=== PATIENT | female | born 1975 | race Two or more races ===

== ENCOUNTER 2022-06-02 12:53 | Inpatient (IN) | payer OTHER ==
[~2022-06-02] VITALS: Ht 162.6 cm; Wt 57.6 kg
[~2022-06-02 12:53] MED LIST: CARAFATE1 G PO; PROTONIX40 MG PO; ZANTAC150 M3 PO; ZOFRAN8 MG PO
[2022-06-02] MEDS ORDERED: LEVO-T25 MCG (13:05)
== END 2022-06-03 15:11 | disposition home or self-care (01) | DRG 343 ==
LOC: ER 12:53 → SURH 17:16
PROVIDERS: Surgery; ADMIT Specialist; ATTEND Specialist
PROC: 0DTJ4ZZ Resection of Appendix, Percutaneous Endoscopic Approach (ICD-10-PCS; principal; 2022-06-02 16:00)
DX: K35.890 Other acute appendicitis without perforation or gangrene (principal)

== ENCOUNTER 2022-11-23 17:11 | Emergency (ER) | payer OTHER ==
[~2022-11-23] VITALS: Ht 162.6 cm; Wt 51.3 kg
[~2022-11-23 17:11] MED LIST changes: +LEVO-T25 MCG
[2022-11-23 19:24] LABS: HEMATOCRIT 33.3 % (36.0-45.00); HEMOGLOBIN 10.4 g/dL (12.0-15.00); MEAN CELL VOLUME 88.9 fL (80.00-100.00); MEAN CORPUSCULAR HEMOGLOBIN 27.8 pg (27.00-32.0); MEAN CORPUSCULAR HGB CONC 31.2 g/dl (32.0-36.0); PLATELET COUNT 298 K/uL (150-450); RED BLOOD COUNT 3.74 M/uL (4.00-6.00)
[2022-11-23 19:49] LABS: INR 1.04; PARTIAL THROMBOPLASTIN TIME 28.7 SECONDS (22.0-34.0); PROTHROMBIN TIME 10.9 SECONDS (9.0-11.5)
[2022-11-23 20:01] LABS: PH,URINE 6.5 (5.0-8.0); URINE APPEARANCE Clear; URINE BILIRRUBIN Negative (NEGATIVE); URINE BLOOD Negative; URINE COLOR Yellow; URINE GLUCOSE Negative (NEGATIVE); URINE LEUKOCYTE Negative; URINE NITRATE Negative; URINE PROTEIN Negative (NEGATIVE); URINE UROBILINOGEN 0.2 E.U./dl
[2022-11-23 20:04] LABS: URINE BACTERIA 80.5 uL (0.0-1933); URINE EPITHELIAL CELLS 3.5 uL (0.0-38.8); URINE RBC 6.8 uL (0.0-20.8); URINE WBC 3.5 uL (0.0-23.2)
[2022-11-23 20:52] LABS: CALCIUM 8.5 mg/dL (8.5-10.1); CREATININE SERUM 0.76 mg/dL (0.55-1.02); GFR 81.57; POTASSIUM 3.83 mEq/L (3.5-5.1)
[2022-11-23] MEDS ORDERED: IBUPROFEN800 MG PO (23:05)
== END 2022-11-24 01:02 | disposition home or self-care (01) ==
LOC: ER 17:11
PROVIDERS: General Practice
DX: R10.9 Unspecified abdominal pain (principal); N83.209 Unspecified ovarian cyst, unspecified side
CPT/HCPCS: 36415; 74176; 96365; 96366; 99284; J1885; J3490; J7042